=== PATIENT | male | born 1985 | race Caucasian/White ===

== ENCOUNTER 2018-03-29 10:14 | Emergency (ER) | payer SELFPAY ==
[2018-03-29 10:59] VITALS: BP 132/90
--- NOTE | 2018-03-29 11:33 | UC ---
Dental HPI - HPI Summary HPI Summary: 33 year old male patient presents with left facial swelling and dental pain. States he noticed some mild swelling to left lower jaw last night at bedtime with mild discomfort then this morning awoke with increased pain and swelling. Reports multiple decayed teeth. Denies fever, chills, trismus, dental drainage, or dysphagia. - History of Current Complaint Chief Complaint: UCGeneralIllness Stated Complaint: FACE SWOLLEN Time Seen by Provider: 03/29/18 11:16 Hx Obtained From: Patient Onset/Duration: Gradual Onset Severity: Moderate Pain Intensity: 7 Aggravating Factor(s): Chewing Alleviating Factor(s): Other (see comments) - cold Related History: Swelling - Allergies/Home Medications Allergies/Adverse Reactions: Allergies Allergy/AdvReac Type Severity Reaction Status Date / Time Penicillins Allergy Hives Verified 03/29/18 10:52 PMH/Surg Hx/FS Hx/Imm Hx - Additional Past Medical History Additional PMH: non-contributory Previously Healthy: Yes - Surgical History Surgical History: Yes Surgery Procedure, Year, and Place: R shoulder repair 2015 - Family History Known Family History: Positive: Other - non-contributory - Social History Occupation: Employed Full-time Lives: With Family Alcohol Use: Occasionally Substance Use Type: Marijuana Substance Use Comment - Amount & Last Used: occasional Smoking Status (MU): Heavy Every Day Tobacco Smoker Type: Cigarettes Amount Used/How Often: 1 PK DAILY Household Exposure Type: Cigarettes Review of Systems Constitutional: Negative ENT: Dental Pain, Other - facial swelling Respiratory: Negative Is Patient Immunocompromised?: No All Other Systems Reviewed And Are Negative: Yes Physical Exam Triage Information Reviewed: Yes Vital Signs: Initial Vital Signs Temp 99.2 F 03/29/18 10:53 Pulse 71 03/29/18 10:53 Resp 16 03/29/18 10:53 BP 132/90 03/29/18 10:53 Pulse Ox 99 03/29/18 10:53 Vital Signs Reviewed: Yes Eye Exam: Normal ENT: Positive: Pharynx normal, Dental tenderness - right lower 2nd bicuspid with significant decay and gingival erythema and edema. Mild induration. No fluctuance., Uvula midline, Other - airway intact. Negative: Trismus Dental: Positive: Gross Decay/Caries @ - multiple teeth. Negative: Cellulitis @ , Cervical Lymphadenopathy Neck: Positive: Supple, No Lymphadenopathy Respiratory: Positive: No respiratory distress Skin Exam: Normal Dental Complaint Course/Dx - Course Course Of Treatment: Clindamycin 300 mg TID x 10 days. Naproxen 500 mg 1 tab every 12 hours as needed for pain. Salt water rinses. Patient provide with local dentist list including no cost/low cost dental care. Verbalizes understanding and agrees with POC. - Differential Dx/Diagnosis Differential Diagnosis/Dx: Dental Caries, Fractured Tooth, Peridontic Disease Provider Diagnoses: dental abcess Discharge - Sign-Out/Discharge Documenting (check all that apply): Patient Departure - Discharge Plan Condition: Stable Disposition: HOME Prescriptions: Clindamycin HCl 300 mg PO Q6HR #40 capsule Naproxen [Naproxen 500 mg tab] 500 mg PO BID #30 tablet. Patient Education Materials: Toothache (ED) Forms: *Work Release Referrals: No Primary Care Phys,NOPCP [Primary Care Provider] - Additional Instructions: Contact dentist from the list provided to you. - Billing Disposition and Condition Condition: STABLE Disposition: Home Attestation Statement User Type: Provider - I was available for consult. This patient was seen by the JOSE RAFAEL. The patient was not presented to, seen by, or examined by me. -Yolande
== END 2018-03-29 11:42 | disposition home or self-care (01) ==
LOC: UCEAST 10:14
DX: K04.7 Periapical abscess without sinus (principal); K02.9 Dental caries, unspecified; Z88.0 Allergy status to penicillin; F17.210 Nicotine dependence, cigarettes, uncomplicated
CPT/HCPCS: 99212; G0463

== ENCOUNTER 2018-09-25 10:52 | Emergency (ER) | payer SELFPAY ==
[2018-09-25 11:16] VITALS: BP 129/85
--- NOTE | 2018-09-25 11:43 | UC ---
UC General HPI - HPI Summary HPI Summary: DAY 7 OF NUMBNESS AND TINGLING TO FINGER TIPS. NOTICES IT MOST UPON WAKING. IMPROVES WHEN HE SHAKES HIS HANDS. L>R. NOTES SOME MILD SWELLING IN FINGERS. JUST STARTED A NEW JOB TILING. DENIES NECK AND BACK PAIN. REST OF ARMS FEEL FINE. - History of Current Complaint Chief Complaint: UCUpperExtremity Stated Complaint: B/L HAND TINGLING,PAIN X 1WEEK Time Seen by Provider: 09/25/18 11:36 Hx Obtained From: Patient Pain Intensity: 7 Associated Signs & Symptoms: Negative: Weakness - Allergy/Home Medications Allergies/Adverse Reactions: Allergies Allergy/AdvReac Type Severity Reaction Status Date / Time Penicillins Allergy Hives Verified 09/25/18 11:07 Home Medications: Home Medications Ibuprofen TAB* [Advil TAB*] 800 mg PO Q6H PRN 09/25/18 [History Confirmed ] PMH/Surg Hx/FS Hx/Imm Hx Previously Healthy: Yes - Surgical History Surgical History: Yes Surgery Procedure, Year, and Place: R shoulder repair 2015 - Family History Known Family History: Positive: Other - non-contributory - Social History Occupation: Employed Full-time Alcohol Use: Occasionally Substance Use Type: Marijuana Substance Use Comment - Amount & Last Used: occasional Smoking Status (MU): Heavy Every Day Tobacco Smoker Type: Cigarettes Amount Used/How Often: 1/2 PPD Household Exposure Type: Cigarettes Review of Systems All Other Systems Reviewed And Are Negative: Yes Constitutional: Positive: Negative Skin: Positive: Negative Eyes: Positive: Negative ENT: Positive: Negative Respiratory: Positive: Negative Cardiovascular: Positive: Negative Gastrointestinal: Positive: Negative Genitourinary: Positive: Negative Motor: Negative: Weakness Neurovascular: Positive: Negative Neurological: Positive: Paresthesia, Numbness. Negative: Weakness Psychological: Positive: Negative Physical Exam Triage Information Reviewed: Yes Appearance: Well-Appearing Vital Signs: Initial Vital Signs Temp 98 F 09/25/18 11:10 Pulse 78 09/25/18 11:10 Resp 17 09/25/18 11:10 BP 129/85 09/25/18 11:10 Pulse Ox 99 09/25/18 11:10 Eye Exam: Normal ENT: Positive: Pharynx normal, TMs normal. Negative: Nasal congestion, Nasal drainage Neck: Positive: Supple, Nontender, No Lymphadenopathy, Other: - C-SPINE IS NON TENDER. ROM IS INTACT AND PAINLESS. Respiratory: Positive: Lungs clear, Normal breath sounds, No respiratory distress Cardiovascular: Positive: RRR, No Murmur, Pulses Normal Abdomen Description: Positive: Nontender Bowel Sounds: Positive: Present Musculoskeletal: Positive: Other: - BUE'S: MILD SWELLING OF FINGER TIPS ONLY, REST OF ARMS HAVE NO GROSS DEFORMITY SWELLING OR DISCOLORATION. SENSATION TO HANDS ARE INTACT TO SUPERFICIAL TOUCH BUT DIMINISHED TO BOTH HANDS IN DISTRIBUTION OF MEDIAL NERVE. + TINEL TEST BOTH WRISTS. BUE'S HAVE FULL S/V/M FUNCTION OTHERWISE. Neurological: Positive: Alert Psychological: Positive: Age Appropriate Behavior Skin Exam: Normal Course/Dx - Differential Dx - Multi-Symptom Differential Diagnoses: Other - NO CONCERN FOR INFECTION OR FX. - Diagnoses Provider Diagnosis: Carpal tunnel syndrome, bilateral Discharge - Sign-Out/Discharge Documenting (check all that apply): Patient Departure All imaging exams completed and their final reports reviewed: No Studies - Discharge Plan Condition: Stable Disposition: HOME Patient Education Materials: Paresthesia (ED) Referrals: Zackary Lucas MD [Medical Doctor] - 5 Days Additional Instructions: TAKE MOTRIN OVER THE COUNTER PER LABEL X 5 DAYS. OBTAIN WRIST SPLINTS FOR CARPAL TUNNEL AND WEAR THEM FOR WORK AND BEDTIME NEEDED. - Billing Disposition and Condition Condition: STABLE Disposition: Home
== END 2018-09-25 11:53 | disposition home or self-care (01) ==
LOC: UCCORT 10:52
DX: G56.03 Carpal tunnel syndrome, bilateral upper limbs (principal); F17.210 Nicotine dependence, cigarettes, uncomplicated; Z88.0 Allergy status to penicillin
CPT/HCPCS: 99211; G0463

== ENCOUNTER 2018-12-25 09:13 | Emergency (ER) | payer OTHER ==
[2018-12-25 09:36] VITALS: BP 140/89
[2018-12-25] MEDS ORDERED: Tetan/Diph/Pertus SYR(Tdap)* 0.5 ML SYR(BOOSTRIX) use SYR IM ONE (09:44)
--- NOTE | 2018-12-25 09:51 | UC ---
Laceration HPI - HPI Summary HPI Summary: laceration left ring finger x 1 day cut his left right finger at work with sharp object laceration at the tip of the finger, moving his finger well increase pain with touch, better, when apply pressure - History Of Current Complaint Chief Complaint: UCLaceration Stated Complaint: WC-LT RING FINGER LAC Time Seen by Provider: 12/25/18 09:35 Hx Obtained From: Patient Laceration Location: Finger - left ring finger Mechanism Of Injury: Sharp Trauma Onset/Duration: Sudden Onset, Lasting Days - 1, Still Present Severity: Mild Pain Intensity: 5 Aggravating Factors: Movement - Allergies/Home Medications Allergies/Adverse Reactions: Allergies Allergy/AdvReac Type Severity Reaction Status Date / Time Penicillins Allergy Hives Verified 12/25/18 09:29 Home Medications: Home Medications NK [No Home Medications Reported] 12/25/18 [History Confirmed 12/25/18] PMH/Surg Hx/FS Hx/Imm Hx Previously Healthy: Yes - Surgical History Surgical History: Yes Surgery Procedure, Year, and Place: R shoulder repair 2015 - Family History Known Family History: Positive: Other - non-contributory Negative: Diabetes - Social History Alcohol Use: Occasionally Substance Use Type: Marijuana Substance Use Comment - Amount & Last Used: occasional Smoking Status (MU): Heavy Every Day Tobacco Smoker Type: Cigarettes Amount Used/How Often: 1/2 PPD Household Exposure Type: Cigarettes - Immunization History Most Recent Tetanus Shot: a least 10yrs ago Review of Systems All Other Systems Reviewed And Are Negative: Yes Constitutional: Positive: Negative Eyes: Positive: Negative ENT: Positive: Negative Respiratory: Positive: Negative Cardiovascular: Positive: Negative Is Patient Immunocompromised?: No Physical Exam Triage Information Reviewed: Yes Appearance: Well-Appearing, No Pain Distress, Well-Nourished Vital Signs: Initial Vital Signs Temp 98.6 F 12/25/18 09:30 Pulse 85 12/25/18 09:30 Resp 16 12/25/18 09:30 BP 140/89 12/25/18 09:30 Pulse Ox 100 12/25/18 09:30 Vital Signs Reviewed: Yes Eye Exam: Normal Eyes: Positive: Conjunctiva Clear ENT: Positive: Normal ENT inspection, Hearing grossly normal, Pharynx normal Neck: Positive: Supple, Nontender, No Lymphadenopathy Respiratory: Positive: Chest non-tender, Lungs clear, Normal breath sounds Cardiovascular: Positive: RRR, No Murmur, Pulses Normal Skin: Positive: Other - left ring finber : 1/4 cm laceration , minimal bleeding , no need for repair moving his finger well , no signs of infection Laceration Course/Dx - Diagnosis Provider Diagnosis: Laceration of finger Discharge - Sign-Out/Discharge Documenting (check all that apply): Patient Departure All imaging exams completed and their final reports reviewed: No Studies - Discharge Plan Condition: Stable Disposition: HOME Patient Education Materials: Laceration Without Closure (ED) Referrals: No Primary Care Phys,NOPCP [Primary Care Provider] - If Needed - Billing Disposition and Condition Condition: STABLE Disposition: Home
== END 2018-12-25 09:59 | disposition home or self-care (01) ==
LOC: UCCORT 09:13
DX: S61.215A Laceration without foreign body of left ring finger without damage to nail, initial encounter (principal); W26.9XXA Contact with unspecified sharp object(s), initial encounter; Y92.9 Unspecified place or not applicable; Y99.0 Civilian activity done for income or pay; Z23 Encounter for immunization; Z88.0 Allergy status to penicillin; F17.210 Nicotine dependence, cigarettes, uncomplicated
CPT/HCPCS: 90471; 90715; 99211; G0463

== ENCOUNTER 2019-03-23 09:27 | Emergency (ER) | payer SELFPAY ==
[2019-03-23 09:42] VITALS: BP 135/83
--- NOTE | 2019-03-23 09:55 | UC ---
Elbow Pain - HPI Summary HPI Summary: Fell last night while he was jumpingin the street in [place]. Does not exactly remember how he landed. but woke up this morning with pain to the right arm. Reddended area on right elbow. Pain increases with any movements. Has taken no medication for pain this morning. [ End ] - History of Current Complaint Chief Complaint: UCUpperExtremity Stated Complaint: S/P FALL(LAST NIGHT)-RT ARM INJURY Time Seen by Provider: 03/23/19 09:41 Hx Obtained From: Patient Onset/Duration: Hours Severity Initially: Moderate Severity Currently: Moderate Pain Intensity: 8 Location Of Pain: Is Discrete @ Character: Stiffness Aggravating Factor(s): Movement Alleviating Factor(s): Immobilization Associated Signs And Symptoms: Positive: Swelling, Redness, Weakness - Allergies/Home Medications Allergies/Adverse Reactions: Allergies Allergy/AdvReac Type Severity Reaction Status Date / Time Penicillins Allergy Hives Verified 03/23/19 09:42 PMH/Surg Hx/FS Hx/Imm Hx Previously Healthy: Yes - Surgical History Surgical History: Yes Surgery Procedure, Year, and Place: R shoulder repair 2016 - Family History Known Family History: Positive: Other - non-contributory Negative: Diabetes - Social History Alcohol Use: Occasionally Substance Use Type: Marijuana Substance Use Comment - Amount & Last Used: occasional Smoking Status (MU): Heavy Every Day Tobacco Smoker Type: Cigarettes Amount Used/How Often: 1 ppd Household Exposure Type: Cigarettes - Immunization History Most Recent Tetanus Shot: a least 10yrs ago Review of Systems All Other Systems Reviewed And Are Negative: Yes Musculoskeletal: Positive: Arthralgia, Decreased ROM, Edema, Myalgia Is Patient Immunocompromised?: No Physical Exam Triage Information Reviewed: Yes Appearance: Well-Appearing, Well-Nourished, Pain Distress Vital Signs: Initial Vital Signs Temp 98.8 F 03/23/19 09:36 Pulse 95 03/23/19 09:36 Resp 16 03/23/19 09:36 BP 135/83 03/23/19 09:36 Pulse Ox 98 03/23/19 09:36 Vital Signs Reviewed: Yes Eye Exam: Normal ENT Exam: Normal Dental Exam: Normal Neck exam: Normal Respiratory Exam: Normal Cardiovascular Exam: Normal Abdominal Exam: Normal Bowel Sounds: Positive: Present Musculoskeletal: Positive: Strength Limited @, ROM Limited @, Edema @ - over the olecranon process of the right elbow, previous scar over the right AC joint, Neurological Exam: Normal Psychological Exam: Normal Skin Exam: Normal Elbow Pain Course/Dx - Course Course Of Treatment: hx obtained, exam performed ,meds reviewed, xray obtained questionable radial head fracture noted, discussed with Dr Da Silva about manamgent, patient placed in sling and referred to Ortho. educated on performing ROM and pain management - Differential Dx/Diagnosis Differential Diagnosis/HQI/PQRI: Contusion, Fracture (Closed), Sprain, Strain Provider Diagnosis: Fracture of radial head, right, closed Discharge - Sign-Out/Discharge Documenting (check all that apply): Patient Departure All imaging exams completed and their final reports reviewed: Yes - Discharge Plan Condition: Stable Disposition: HOME Patient Education Materials: Elbow Fracture (ED) Referrals: No Primary Care Phys,NOPCP [Primary Care Provider] - Zackary Lucas MD [Medical Doctor] - Additional Instructions: 1. take 400 mg of ibuprofen every 4-6 hours for pain and swelling 2. YOu can ice as needed. 3. Wear the sling continuously and do Range of motion 3-4 times a day in pain free movements., 4. call on monday to follow up with the orthopedic, Dr Lucas. - Billing Disposition and Condition Condition: STABLE Disposition: Home
== END 2019-03-23 10:38 | disposition home or self-care (01) ==
LOC: UCCORT 09:27
DX: S52.121A Displaced fracture of head of right radius, initial encounter for closed fracture (principal); W19.XXXA Unspecified fall, initial encounter; Y93.89 Activity, other specified; Y92.410 Unspecified street and highway as the place of occurrence of the external cause; F17.210 Nicotine dependence, cigarettes, uncomplicated
CPT/HCPCS: 99212; G0463